=== PATIENT | female | born 1960 | race Caucasian/White ===

== ENCOUNTER 2017-06-06 08:16 | Inpatient (IN) ==
--- NOTE | 2017-06-05 21:52 | Discharge Summary ---
<CariDeisy jasmineRomana L - Last Filed: 06/05/17 21:55> Date of Encounter: 06/05/17 - Discharge Diagnosis (1) Arthritis of knee, left Priority: Primary Status: Acute (2) Depression Priority: Secondary Status: Chronic Qualifiers: Depression Type: unspecified Qualified Code(s): F32.9 - Major depressive disorder, single episode, unspecified (3) Migraines Priority: Secondary Status: Chronic Qualifiers: Migraine type: unspecified Status migrainosus presence: without status migrainosus Intractability: not intractable Qualified Code(s): G43.909 - Migraine, unspecified, not intractable, without status migrainosus (4) Status post total knee replacement, left Priority: Primary Status: Acute - Discharge Medications Home Medications: Aspirin Enteric Coated [Aspirin EC] 325 mg PO DAILY #21 tablet.dr 06/05/17 [Rx] OxyCODONE Immed Rel [Roxicodone 5 MG] 5 - 10 mg PO Q6HR PRN #40 tablet 06/05/17 [Rx] Amitriptyline [Elavil] 25 mg PO HS 06/06/17 [History] Apremilast [Otezla] 30 mg PO BID 06/06/17 [History] Atorvastatin [Lipitor] 10 mg PO HS 06/06/17 [History] Duloxetine HCl [Cymbalta] 60 mg PO BID 06/06/17 [History] Estradiol [Estrace] 1 mg PO DAILY 06/06/17 [History] Levothyroxine [Synthroid] 75 mcg PO 0630 06/06/17 [History] Meloxicam [Mobic] 15 mg PO DAILY 06/06/17 [History] Multivitamin [Multi-Day Vitamins] 1 each PO DAILY 06/06/17 [History] Omeprazole [PriLOSEC] 40 mg PO DAILY 06/06/17 [History] Tramadol HCl [Ultram] 50 mg PO QID PRN 06/06/17 [History] hydrOXYzine pamoate [HydrOXYzine Pamoate] 25 - 50 mg PO BID PRN 06/06/17 [ History] Allergies/Adverse Reactions: Allergies adhesive tape Adverse Reaction (Verified 06/06/17 19:41) Rash latex Adverse Reaction (Verified 06/06/17 19:41) See Comments Primary care physician: LOREN Ontiveros - Patient Status Disposition: Home Health Service Condition: Good - Discharge Instructions Follow Up With: Orly Oneill CNP [Primary Care Provider] - - Hospital Course Hospital course: Ms. Chicas is a 56 year old female - Time Spent with Patient Total time spent providing and/or coordinating discharge services: <Yuri Dodgemerlin Quezadah - Last Filed: 06/08/17 07:49> Date of Encounter: 06/08/17 Time of Encounter: 07:47 - Discharge Diagnosis (1) Obesity, morbid, BMI 40.0-49.9 Priority: Secondary Status: Chronic (2) Arthritis of knee, left Priority: Primary Status: Chronic (3) Depression Priority: Secondary Status: Chronic Qualifiers: Depression Type: unspecified Qualified Code(s): F32.9 - Major depressive disorder, single episode, unspecified (4) Migraines Priority: Secondary Status: Chronic Qualifiers: Migraine type: unspecified Status migrainosus presence: without status migrainosus Intractability: not intractable Qualified Code(s): G43.909 - Migraine, unspecified, not intractable, without status migrainosus (5) Status post total knee replacement, left Priority: Primary Status: Acute (6) Acute blood loss anemia Priority: Primary Status: Acute Primary care physician: LOREN Ontiveros - Patient Status Functional capacity at discharge: uses cane/walker Overall status at discharge: patient is progressing back to baseline - Hospital Course Hospital course: Ms. Chicas is a 56 year old female Status post total knee replacement. Patient with a drop in her hematocrit to 28.5 asymptomatic. The patient had an uneventful postoperative course. They received antibiotics and physical therapy and were discharged in stable condition. There will follow -up in the office in 2 weeks. - Time Spent with Patient Total time spent providing and/or coordinating discharge services:
--- NOTE | 2017-06-05 21:55 | Physician Discharge Referral ---
<Carmelo Dodge - Last Filed: 06/09/17 06:36> - Diagnosis (1) Obesity, morbid, BMI 40.0-49.9 Status: Chronic (2) Arthritis of knee, left Status: Chronic (3) Depression Status: Chronic (4) Migraines Status: Chronic (5) Status post total knee replacement, left Status: Acute (6) Acute blood loss anemia Status: Acute - Respiratory Orders Smoking Cessation: Smoking cessation has been advised. For more information, call the [place] Tobacco Quit Line at 1-523-LMGU-NOW. - Transfer Medications Home Medications: Aspirin Enteric Coated [Aspirin EC] 325 mg PO DAILY #21 tablet. 06/05/17 [Rx] OxyCODONE Immed Rel [Roxicodone 5 MG] 5 - 10 mg PO Q6HR PRN #40 tablet 06/05/17 [Rx] Amitriptyline [Elavil] 25 mg PO HS 06/06/17 [History] Apremilast [Otezla] 30 mg PO BID 06/06/17 [History] Atorvastatin [Lipitor] 10 mg PO HS 06/06/17 [History] Duloxetine HCl [Cymbalta] 60 mg PO BID 06/06/17 [History] Estradiol [Estrace] 1 mg PO DAILY 06/06/17 [History] Levothyroxine [Synthroid] 75 mcg PO 30 06/06/17 [History] Meloxicam [Mobic] 15 mg PO DAILY 06/06/17 [History] Multivitamin [Multi-Day Vitamins] 1 each PO DAILY 06/06/17 [History] Omeprazole [PriLOSEC] 40 mg PO DAILY 06/06/17 [History] Tramadol HCl [Ultram] 50 mg PO QID PRN 06/06/17 [History] hydrOXYzine pamoate [HydrOXYzine Pamoate] 25 - 50 mg PO BID PRN 06/06/17 [ History] Allergies/Adverse Reactions: Allergies adhesive tape Adverse Reaction (Verified 06/06/17 19:41) Rash latex Adverse Reaction (Verified 06/06/17 19:41) See Comments Certification: Further, I certify that my clinical findings support that this patient is homebound (i.e. absences from home require considerable and taxing effort and are for medical reasons or tenriism services or infrequently or short duration when for other reasons) because: Attestation: My signature below is to certify that this patient is under my care and that I, or nurse practitioner, or a physician's assistant plant manager working with me, has a face-to -face encounter with this patient. <Romana Wiseman - Last Filed: 06/10/17 12:39> Home Health/Hosp Referral Info Transfer to: Home Health Provider in Charge Post Discharge: PCP - Diagnosis (1) Status post total knee replacement, left Priority: Primary Status: Acute (2) Arthritis of knee, left Priority: Primary Status: Chronic (3) Depression Priority: Primary Status: Chronic (4) Migraines Priority: Primary Status: Chronic - Respiratory Orders None Smoking Cessation: Smoking cessation has been advised. For more information, call the [employer] Tobacco Quit Line at 5-157-GQOR-NOW. - Diet/Nutrition Diet/Nutrition Orders: Regular - Activity Activity Orders: Up ad sharon, Ambulate - Services Needed Following services are medically necessary services: Nursing, Home Health Aide, Physical Therapy, Occupational Therapy Home Care Orders: Opsite dressing, leave intact until first post-operative visit. If dressing becomes >50% saturated, contact office, remove dressing and place appropriate dressing in its place. Do not allow for dressing to get wet. Triangle in place, plan to remove at post-operative day #14-16. Total Joint Precautions x 6 weeks Apply cold therapy wrap 3-6x/day for 20 minutes at a time. Encourage ambulation throughout the day Use Incentive spirometer 10x/hour. Elevate affected extremity above heart as tolerated. Brace: Wear knee immobilizer at night x 2 weeks Certification: Further, I certify that my clinical findings support that this patient is homebound (i.e. absences from home require considerable and taxing effort and are for medical reasons or tenriism services or infrequently or short duration when for other reasons) because: Homebound Reason: Post-surgery restriction and or conditions limit ability to leave home Attestation: My signature below is to certify that this patient is under my care and that I, or nurse practitioner, or a physician's assistant plant manager working with me, has a face-to -face encounter with this patient.
[2017-06-06] MEDS ORDERED: CeFAZolin Pre 3,000 MG/100 ML 3,000 MG/100 ML BAG IVPB ONE (08:34)
--- NOTE | 2017-06-06 08:41 | History & Physical Report ---
Date of Encounter: 06/06/17 Time of Encounter: 08:41 24 Hour HP Update - Instructions Instructions: If the History and Physical is less than 30 days old and was completed prior to A.M. admission and or procedure and has NOT been updated on calendar day of procedure please complete this update prior to performing procedure. - Update Patient reports changes in Medical Condition: No Changes in examination, assessment, or condition: No Changes in Medication: No Preop tests/diagnostics Reviewed: Yes Surgery Remains Indicated: Yes Consent for Planned Operative Procedure(s) Verified: Yes - Pre-Operative Checklist Preoperative Checklist Indicated: No Prophylactic Antibiotic Ordered: Yes Is VTE Prophylaxis Indicated?: Yes
[2017-06-06] MEDS ORDERED: Vancomycin 1,750 MG in D5% in Water 250 ML IVPB ONE (09:02)
[2017-06-06] MEDS: Ringers Solution, Lactated 1,000 ML IVC SCH ×2 (09:05→10:07)
[2017-06-06] MEDS ORDERED: Vancomycin 1,750 MG in D5% in Water 500 ML IVPB ONE ×2 (09:33→09:35)
[2017-06-06] MEDS ORDERED: Famotidine 20 MG/2 ML VIAL IVP ONE (09:36)
[2017-06-06] MEDS ORDERED: Gabapentin 300 MG CAPSULE PO ONE (09:36)
[2017-06-06] MEDS ORDERED: *HR* FentaNYL (PF) 100 MCG/2 ML VIAL ONE (10:01)
[2017-06-06] MEDS ORDERED: Lidocaine -MPF 2% 2 ML VIAL ONE (10:01)
[2017-06-06] MEDS ORDERED: Dexamethasone 4 MG/ML VIAL ONE (10:02)
[2017-06-06] MEDS ORDERED: *HR* Propofol 200 MG/20 ML VIAL IVP ONE ×2 (10:02→10:44)
[2017-06-06] MEDS ORDERED: *HR* Midazolam HCl 2 MG/2 ML VIAL ONE (10:12)
--- NOTE | 2017-06-06 10:19 | Anesthesia Evaluation PreOp ---
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 06/05/17 [Rx] OxyCODONE Immed Rel [Roxicodone 5 MG] 5 - 10 mg PO Q6HR PRN #40 tablet 06/05/17 [Rx] Allergies latex Allergy (Unverified 06/01/17 15:11) See Comments - Meds/Allergy Pre-op Review Medications Reviewed: Yes Allergies Reviewed: Yes Beta Blockers on Current Med List: No Anesthesia Results - Labs Laboratory Tests 06/01/17 06/01/17 15:27 15:27 Hgb 14.0 Hct 42.9 Plt Count 264 Sodium 136 Potassium 4.0 BUN 9 Creatinine 0.82 Anesthesia Exam O2 Sat Height 1.63 m Height 1.63 m Height 1.63 m Weight 122.016 kg Weight 122.016 kg Weight 122.016 kg O2 Sat by Pulse Oximetry 95 O2 Sat by Pulse Oximetry 95 Vital Signs Temp Pulse Resp BP Pulse Ox 98.3 F 102 18 129/82 95 06/06/17 08:37 06/06/17 08:37 06/06/17 08:37 06/06/17 08:37 06/06/17 08:37 Height: 5'4 Weight: 269 lbs NPO (# of Hours): MN Pain Scale: 0 - HEENT Pupil (Motor): Pupils equal, EOMI Mallampati: III Teeth: Normal Oral Opening: Less than or equal to 3 - BROADCAST FIELD SUPERVISOR LOC: Oriented BROADCAST FIELD SUPERVISOR Motor: Normal RUE, Normal LUE, Normal RLE, Normal LLE, Normal Face BROADCAST FIELD SUPERVISOR Sensory: Normal: RUE, LUE, RLE, LLE, Face - Cardiac Rhythm: Regular Murmur: None JVD: No Carotid Bruit: No - Pulmonary Breath Sounds: bilateral Clear Respiratory Effort: Symmetrical Anesthesia Assess/Plan ASA Score: 3 (MO) Modified [place] Scale for Level of Consciousness: Cooperative, oriented, and tranquil Anesthetic Plan: General, Regional Monitoring Plan: Standard Monitors Recovery Plan: PACU (Discussed GA and RA, agrees to proceed)
[2017-06-06] MEDS ORDERED: Tetracaine/PF 20 MG/2 ML AMPUL ONE (10:25)
[2017-06-06] MEDS ORDERED: Bupivacaine/Clonidine Syringe 1 EACH SYRINGE ONE (10:25)
--- NOTE | 2017-06-06 10:48 | Anesthesia Procedures ---
Date of Encounter: 06/06/17 Time of Encounter: 10:46 Procedures: Anesthesia - Nerve Block Procedure Date: 06/06/17 Time: 10:46 Allergies/Adv Reactions: Allergies latex Allergy (Unverified 06/01/17 15:11) See Comments Pre-op Diagnosis: left knee oa Surgical Procedure: left tka Checklist: Correct Patient Identifier, Correct procedure, History checked Correct side: Left Blood Thinner: No Monitor Applied: EKG, BP, Pulse Oximetry Supplemental Oxygen via Nasal Cannula (L/min): 2 Sedation: Versed (mg): 2 Sedation: Fentanyl (mcg): 100 Indication: Post Op Analgesia Pre-op Neuro Deficits: No Block Type: Femoral, Other (iPACK) Catheter placed: No Sterile Technique: Yes Ultrasound used: Yes Anatomy identified: Yes Visual spread of Local: Yes Neuro Stimulation: No Blood on Needle Aspiration: No Smooth Injection of Local: Yes Pain with Injection of Local: No Prep: Chlorhexadine Needle: 21 x 100 mm Stimuplex Local: 0.25% Bupivicaine w/Clonidine 20 mcg/cc (20 CC iPACK), Ropivacaine (30cc femoral) Volume (cc): 50 Number of Attempts: 1 Complications: None/effective block
[2017-06-06] MEDS ORDERED: *HR* Meperidine 25 MG/ML SYRINGE IVP PRN (11:27)
[2017-06-06] MEDS ORDERED: *HR* Succinylcholine 200 MG/10 ML VIAL IVP ONE (11:39)
[2017-06-06] MEDS ORDERED: Ondansetron 4 MG/2 ML VIAL ONE (11:39)
[2017-06-06] MEDS ORDERED: Ketorolac 30 MG/ML VIAL ONE (11:59)
--- NOTE | 2017-06-06 11:59 | Orthopedic Operative Note ---
Date of procedure: 06/06/17 Pre-op diagnosis: Left knee arthritis Post-op diagnosis: same Procedure: Procedure: Left Total knee replacement Estimated blood loss: 200 cc Hardware: Metal and polyethylene replacement: Biomet Femur: 65, 16 x 80 stem Tibia: 71, 12 x 80 stem Makenna insert: 12 constrained Patella: 34 Exam Under anesthesia: Loss full extension 10 degrees flexion 90 degrees Procedural Notes: Grade 4 arthritic changes medial compartment patellofemoral joint. Operative procedure: The patient was brought to the operating room and placed on the operating room table. After general anesthesia was administered the operative knee was examined. Findings were noted in the exam under anesthesia. The operative extremity was prepped and draped in sterile surgical fashion. The patient received IV antibiotics prior to skin incision. A standard midline incision was made centered over the patella. The incision was made through the skin and subcutaneous tissue. A medial parapatellar tendon approach was performed. Care was taken to preserve tissue along the medial aspect of the patella. And to protect the patella tendon. The deep MCL was released off the medial tibia. The infra patella fat pad was excised. Knee was brought into flexion. Patient noted to have grade 4 arthritic changes medial compartment and patellofemoral joint. The entry hole was made for the intramedullary femoral guide. The guide was seated in 6 degrees of valgus. Anterior cut was made followed by the distal cut. The PCL the medial and the lateral menisci were excised. The tibia was subluxed forward. The entry hole was made for the intramedullary tibial guide. Guide was seated to resect 2 mm off the more abnormal side. The knee was brought into flexion the distal femur was sized to a 65 The femur was first reamed to a 16 x 80 The femoral guide was seated, the anterior cut was made followed by the posterior condylar cut, followed by the chamfer cuts. The finishing guide was seated the box cut was made. Trial had good fit and fixation The tibia was sized to a an 71 The tibia was first reamed 12 x 80 Trial reduction revealed full extension no varus valgus instability with the appropriate 12 insert. The patella was everted and cut was made at the level of the insertion of the quadriceps and patella tendon. The patella was sized to a 34 the guide was seated and the lug holes are drilled. Trial reduction revealed excellent patella tracking. All trial components were removed all bony surfaces were irrigated. Components were assembled on the back table. The femur was cemented first followed by the tibia. The 34 Makenna was seated and secured. The knee was brought into full extension. The patella was cemented and held in place with the patellar holding clamp. After the cement had hardened, the knee sat for 2 minutes with a Betadine saline solution. The knee was then irrigated out with 2 L of pulse irrigation. The knee was closed by the PA. The extensor mechanism was closed with #2 FiberWire suture and #2 PDS suture. The subcutaneous tissue was then irrigated and closed deep with #1 PDS suture superficially with 0 PDS suture and skin was closed with skin kristine The patient was then placed in a sterile dressing and a postoperative brace extubated and transferred to recovery room in stable condition. Anesthesia: RHIANNON Surgeon: Carmelo Dodge Theatre Professor: Moriah Castillo Condition: stable Disposition: PACU
[2017-06-06] MEDS ORDERED: *HR* HYDROmorphone 2 MG/ML SYRINGE ONE (12:39)
[2017-06-06] MEDS ORDERED: *HR* HYDROmorphone (PF) 1 MG/ML SYRINGE ONE ×2 (12:49→13:15)
[2017-06-06] MEDS: *HR* HYDROmorphone (PF) 1 MG/ML SYRINGE IVP PRN ×4 (12:50→13:20)
[2017-06-06 13:14] LABS: Hematocrit 36.8 % (35.3-44.9)
[2017-06-06 13:19] LABS: Hemoglobin 11.8 g/dL (11.5-15.4)
--- NOTE | 2017-06-06 13:22 | Anesthesia Evaluation Post Op ---
Date of Encounter: 06/06/17 Time of Encounter: 13:22 - Vital Signs Vital Signs: Last Vital Signs Temp 97.0 F L 06/06/17 12:40 Pulse 84 06/06/17 12:50 Resp 16 06/06/17 12:50 BP 92/57 06/06/17 12:50 Pulse Ox 99 06/06/17 12:50 - Lungs Lungs: Clear Ascult./Percussion - Airway Airway: Non-obstructed - Cardiovascular Regular Rate - Mental Status Mental Status: Alert & Oriented, Answers Appropriately - Pain Pain Scale: 4 - Nausea Vomiting Nausea Vomiting: Not Present - Hydration Hydration: NPO - Discharge PostOp Status: Transfer Patient to floor
[2017-06-06] MEDS ORDERED: *HR* OxyCODONE Immed Rel 5 MG TABLET PO PRN (13:52)
[2017-06-06] MEDS ORDERED: Temazepam 15 MG CAPSULE PO PRN (13:52)
[2017-06-06] MEDS ORDERED: Ondansetron 4 MG/2 ML VIAL IVP PRN (13:52)
[2017-06-06] MEDS ORDERED: MOM Conc 10 ML UD.LIQ PO PRN (13:52)
[2017-06-06] MEDS ORDERED: Sennosides 8.6 MG TABLET PO PRN (13:52)
[2017-06-06] MEDS ORDERED: Ringers Solution, Lactated 1,000 ML IVC SCH (13:52)
[2017-06-06] MEDS ORDERED: Naloxone 0.4 MG/ML INJ IVP PRN (13:52)
[2017-06-06] MEDS ORDERED: Ringers Solution, Lactated 500 ML IVC ONE (15:40)
[2017-06-06] MEDS ORDERED: *HR* Enoxaparin 30 MG/0.3 ML SYRINGE SQ SCH (18:00)
[2017-06-06] MEDS: ceFAZolin 3,000 MG in D5% in Water 100 ML IVPB SCH (18:44)
[2017-06-06] MEDS: *HR* Enoxaparin 30 MG/0.3 ML SYRINGE SQ SCH (18:45)
[2017-06-06] MEDS: *HR* OxyCODONE Immed Rel 5 MG TABLET PO PRN (19:39)
[2017-06-07] MEDS: ceFAZolin 3,000 MG in D5% in Water 100 ML IVPB SCH (00:52)
[2017-06-07] MEDS: *HR* OxyCODONE Immed Rel 5 MG TABLET PO PRN ×5 (00:59→21:34)
[2017-06-07] MEDS: *HR* Enoxaparin 30 MG/0.3 ML SYRINGE SQ SCH ×2 (05:50→18:44)
[2017-06-07 06:01] LABS: Hematocrit 36.6 % (35.3-44.9); Hemoglobin 11.6 g/dL (11.5-15.4)
[2017-06-07 06:21] LABS: BUN/Creatinine Ratio 12 (6-26); Blood Urea Nitrogen 10 mg/dL (7-20); Calcium 9.2 mg/dL (8.6-10.8); Carbon Dioxide 26 mEq/L (19-29); Chloride 103 mEq/L (98-109); Glucose 121 mg/dL (70-99); Osmolality,Calculated 286 (280-300); Potassium 3.9 mEq/L (3.5-4.5); Sodium 138 mEq/L (136-145); eGFR For African Americans > 60 (> 60); eGFR For Non-African Americans > 60 (> 60)
--- NOTE | 2017-06-07 06:23 | Orthopedics Progress Note ---
Date of Encounter: 06/07/17 Time of Encounter: 06:22 - Assessment and Plan (1) Obesity, morbid, BMI 40.0-49.9 Current Visit: Yes Status: Chronic (2) Arthritis of knee, left Current Visit: Yes Status: Chronic (3) Depression Current Visit: Yes Status: Chronic Qualifiers: Depression Type: unspecified Qualified Code(s): F32.9 - Major depressive disorder, single episode, unspecified (4) Migraines Current Visit: Yes Status: Chronic Qualifiers: Migraine type: unspecified Status migrainosus presence: without status migrainosus Intractability: not intractable Qualified Code(s): G43.909 - Migraine, unspecified, not intractable, without status migrainosus (5) Status post total knee replacement, left Current Visit: Yes Status: Acute Subjective Interval history: Patient was seen this morning doing well without complaints. Afebrile vital signs stable. Operative extremity: Neurovascularly intact Dressing clean dry and intact Calves nontender Assessment and plan: Continue with postoperative care Hematocrit 36 Objective Vital signs: Vital Signs Temp Pulse Resp BP Pulse Ox 06/07/17 04:44 97.9 F 85 17 103/68 98 06/06/17 22:58 98.5 F 86 18 104/67 97 06/06/17 19:25 98.7 F 80 18 102/71 97 06/06/17 16:35 97.8 F 75 14 115/76 95 06/06/17 15:35 97.8 F 85 14 83/63 95 06/06/17 14:30 97.8 F 81 13 103/73 97 06/06/17 14:14 97.7 F 83 12 98/67 96 06/06/17 14:00 97.8 F 88 13 86/63 97 06/06/17 13:55 98 06/06/17 13:42 97.8 F 86 12 97/71 97 06/06/17 13:30 97.8 F 84 16 111/85 95 06/06/17 13:20 85 16 105/74 96 06/06/17 13:10 97.8 F 81 16 115/77 95 06/06/17 13:00 82 16 108/76 96 06/06/17 12:50 84 16 92/57 99 06/06/17 12:40 97.0 F L 85 12 80/56 97 06/06/17 10:47 89 16 125/79 98 06/06/17 10:30 86 16 112/95 96 06/06/17 08:49 98.3 F 102 18 129/82 95 06/06/17 08:37 98.3 F 102 18 129/82 95 Intake and Output 06/06/17 06/06/17 06/07/17 15:59 23:59 07:59 Intake Total 1000 / 1000 1060 / 1060 Output Total 250 / 250 1425 / 1425 500 / 500 Balance 750 / 750 -365 / -365 -500 / -500 Intake: IV Fluids 1000 / 1000 100 / 100 Lactated Ringers 1,000 ML 1000 / 1000 @ 25 mls/hr IVC .Q24H JOSEFA Rx#:[id number] Ancef 3,000 MG In 100 / 100 Dextrose 5% 100 ML @ 200 mls/hr IVPB Q8HR JOSEFA Rx#: [id number] Oral 0 / 0 960 / 960 Output: Urine 0 / 0 1425 / 1425 500 / 500 Estimated Blood Loss 250 / 250 Other: Meal Dinner Percent of Meal Consumed 100% # Voids 1 Weight 122.016 kg - Labs CBC & BMP: 06/07/17 04:09 06/07/17 04:09 Labs: Abnormal lab results Glucose 121 mg/dL (70-99) H 06/07/17 04:09 - VTE Documentation of Mechanical Device: Venous foot pump, device Consult Discharge Plan - Plan Referrals: Orly Oneill, METAL ROOFING MECHANIC [Primary Care Provider] -
[2017-06-07] MEDS: *HR* HYDROmorphone (PF) 1 MG/ML SYRINGE IVP PRN ×2 (08:40→14:32)
--- NOTE | 2017-06-07 11:50 | Event Note ---
Date of Encounter: 06/07/17 Time of Encounter: 11:49 PCR - POD#1 - Left TKR Patient seen at bedside. D/c oxygen via NC Pain control: Yes Participating in PT. All questions and concerns addressed. Educated on use of incentive spirometer, ambulation, and hydration. Patient educated on post-operative restrictions and care. Addressed: Above* D/C plan:.Home with [facility] - possibly ECF pending PT re-eval - both continuities placed.
--- NOTE | 2017-06-07 11:51 | Physician Discharge Referral ---
ExtendedCare Referral Info Transfer To: [facility] Provider in Charge: Provider in Charge after Transfer: PCP Institutional Level of Care: Skilled - Diagnosis (1) Status post total knee replacement, left Priority: Primary Status: Acute (2) Arthritis of knee, left Priority: Primary Status: Chronic (3) Depression Priority: Secondary Status: Chronic (4) Migraines Priority: Secondary Status: Chronic Expected Duration of Placement: <30 days Prognosis: Good Aware of Diagnosis: Patient Aware of Prognosis: Patient - Transfer Medications Home Medications: Aspirin Enteric Coated [Aspirin EC] 325 mg PO DAILY #21 tablet. 06/05/17 [Rx] OxyCODONE Immed Rel [Roxicodone 5 MG] 5 - 10 mg PO Q6HR PRN #40 tablet 06/05/17 [Rx] Amitriptyline [Elavil] 25 mg PO HS 06/06/17 [History] Apremilast [Otezla] 30 mg PO BID 06/06/17 [History] Atorvastatin [Lipitor] 10 mg PO HS 06/06/17 [History] Duloxetine HCl [Cymbalta] 60 mg PO BID 06/06/17 [History] Estradiol [Estrace] 1 mg PO DAILY 06/06/17 [History] Levothyroxine [Synthroid] 75 mcg PO 0630 06/06/17 [History] Meloxicam [Mobic] 15 mg PO DAILY 06/06/17 [History] Multivitamin [Multi-Day Vitamins] 1 each PO DAILY 06/06/17 [History] Omeprazole [PriLOSEC] 40 mg PO DAILY 06/06/17 [History] Tramadol HCl [Ultram] 50 mg PO QID PRN 06/06/17 [History] hydrOXYzine pamoate [HydrOXYzine Pamoate] 25 - 50 mg PO BID PRN 06/06/17 [ History] Allergies/Adverse Reactions: Allergies adhesive tape Adverse Reaction (Verified 06/06/17 19:41) Rash latex Adverse Reaction (Verified 06/06/17 19:41) See Comments - Respiratory Orders None Smoking Cessation: Smoking cessation has been advised. For more information, call the [place] Tobacco Quit Line at 1-370-OSEU-NOW. - Ancillary Orders May use pressure relief devices daily prn, May go on NOAH w/family/respon constitution party w /meds at nurse discretion PRN, May consult with Dentist, Stapler Hand, Executive Vice President And Chief Operating Officer PRN - Mobility Orders Chair, Ambulate - Rehabiliation Orders Rehab Potential: Good Rehab Orders: ROM Exercises, Evaluation for Physical Therapy, Evaluation for Occupational Therapy Other: Opsite dressing, leave intact until first post-operative visit. If dressing becomes >50% saturated, contact office, remove dressing and place appropriate dressing in its place. Do not allow for dressing to get wet. [place] in place, plan to remove at post-operative day #14-16. Total Joint Precautions x 6 weeks Apply cold therapy wrap 3-6x/day for 20 minutes at a time. Encourage ambulation throughout the day Use Incentive spirometer 10x/hour. Elevate affected extremity above heart as tolerated. Brace: Wear knee immobilizer at night x 2 weeks. - Treatments Skin tear care topically daily PRN per policy List/Other: Opsite dressing, leave intact until first post-operative visit. If dressing becomes >50% saturated, contact office, remove dressing and place appropriate dressing in its place. Do not allow for dressing to get wet. [place] in place, plan to remove at post-operative day #14-16. Total Joint Precautions x 6 weeks Apply cold therapy wrap 3-6x/day for 20 minutes at a time. Encourage ambulation throughout the day Use Incentive spirometer 10x/hour. Elevate affected extremity above heart as tolerated. Brace: Wear knee immobilizer at night x 2 weeks. - Diet Orders Regular CERTIFICATION: I certify that the transfer of the above named patient to an Extended Care Facility is necessary for the continuing treatment of the diagnosis listed. The above information is true and accurate reflection of patient's current condition. Confidential - Redisclosure prohibited without a patient's written consent.
[2017-06-07] MEDS ORDERED: Acetaminophen IV 1,000 MG/100 ML INFUS..BTL IVPB PRN (13:39)
[2017-06-08] MEDS: *HR* HYDROmorphone (PF) 1 MG/ML SYRINGE IVP PRN ×2 (00:44→04:15)
[2017-06-08] MEDS: *HR* OxyCODONE Immed Rel 5 MG TABLET PO PRN ×3 (03:19→12:48)
[2017-06-08] MEDS ORDERED: Acetaminophen IV 1,000 MG/100 ML INFUS..BTL IVPB PRN (04:15)
[2017-06-08 05:32] LABS: Hematocrit 28.8 % (35.3-44.9)
[2017-06-08 05:33] LABS: Hemoglobin 9.5 g/dL (11.5-15.4)
[2017-06-08 05:47] LABS: BUN/Creatinine Ratio 10 (6-26); Blood Urea Nitrogen 7 mg/dL (7-20); Calcium 8.7 mg/dL (8.6-10.8); Carbon Dioxide 31 mEq/L (19-29); Chloride 98 mEq/L (98-109); Glucose 140 mg/dL (70-99); Osmolality,Calculated 280 (280-300); Potassium 3.2 mEq/L (3.5-4.5); Sodium 135 mEq/L (136-145); eGFR For African Americans > 60 (> 60); eGFR For Non-African Americans > 60 (> 60)
[2017-06-08] MEDS: *HR* Enoxaparin 30 MG/0.3 ML SYRINGE SQ SCH (05:58)
--- NOTE | 2017-06-08 07:50 | Orthopedics Progress Note ---
Date of Encounter: 06/08/17 Time of Encounter: 07:49 - Assessment and Plan (1) Obesity, morbid, BMI 40.0-49.9 Current Visit: Yes Status: Chronic (2) Arthritis of knee, left Current Visit: Yes Status: Chronic (3) Depression Current Visit: Yes Status: Chronic Qualifiers: Depression Type: unspecified Qualified Code(s): F32.9 - Major depressive disorder, single episode, unspecified (4) Migraines Current Visit: Yes Status: Chronic Qualifiers: Migraine type: unspecified Status migrainosus presence: without status migrainosus Intractability: not intractable Qualified Code(s): G43.909 - Migraine, unspecified, not intractable, without status migrainosus (5) Status post total knee replacement, left Current Visit: Yes Status: Acute (6) Acute blood loss anemia Current Visit: Yes Status: Acute Subjective Interval history: Patient was seen this morning doing well without complaints. Afebrile vital signs stable. Operative extremity: Neurovascularly intact Dressing clean dry and intact Calves nontender Assessment and plan: Continue with postoperative care Hematocrit 28.5 asymptomatic discharged today Objective Vital signs: Vital Signs Temp Pulse Resp BP Pulse Ox 06/08/17 07:09 98.8 F 101 16 129/83 94 06/08/17 00:34 98.7 F 83 19 128/81 93 06/07/17 20:45 99.0 F 111 17 110/69 94 06/07/17 16:14 98.7 F 106 17 107/72 95 06/07/17 11:49 98.5 F 102 16 128/80 93 06/07/17 08:00 99 Intake and Output 06/07/17 06/07/17 06/08/17 15:59 23:59 07:59 Intake Total 1360 / 1360 840 / 840 1200 / 1200 Output Total 1050 / 1050 700 / 700 2250 / 2250 Balance 310 / 310 140 / 140 -1050 / -1050 Intake: IV Fluids 100 / 100 Ofirmev 1,000 mg/100 ml 1 100 / 100 ,000 mg In 100 ml @ 400 mls/hr IVPB Q6HR PRN Rx#: [id number] Oral 1360 / 1360 740 / 740 1200 / 1200 Output: Urine 1050 / 1050 700 / 700 2250 / 2250 Other: Meal Lunch Dinner Percent of Meal Consumed 90% 10% # Voids 2 - Labs CBC & BMP: 06/08/17 05:24 06/08/17 05:24 Labs: Abnormal lab results Hgb 9.5 g/dL (11.5-15.4) L D 06/08/17 05:24 Hct 28.8 % (35.3-44.9) L 06/08/17 05:24 Sodium 135 mEq/L (136-145) L 06/08/17 05:24 Potassium 3.2 mEq/L (3.5-4.5) L 06/08/17 05:24 Carbon Dioxide 31 mEq/L (19-29) H 06/08/17 05:24 Glucose 140 mg/dL (70-99) H 06/08/17 05:24 - VTE Documentation of Mechanical Device: Venous foot pump, device Consult Discharge Plan - Plan Referrals: Orly Oneill, MEDICAID NURSE [Primary Care Provider] -
[2017-06-08] MEDS ORDERED: Multivit/Ca/Min/Fe/FA 1 TAB TABLET PO SCH (09:00)
--- NOTE | 2017-06-08 12:18 | Event Note ---
Date of Encounter: 06/08/17 Time of Encounter: 12:00 PCR - POD#2 - Left TKR Patient seen at bedside. D/c oxygen via NC Pain control: Adequate Participating in PT. All questions and concerns addressed. Educated on use of incentive spirometer, ambulation, and hydration. Patient educated on post-operative restrictions and care. Addressed: See Above D/C plan:.[facility]. Social work awaiting authorization - authorization obtained during PCR - patient to go today.
[2017-06-08 12:48] VITALS: BP 106/71
== END 2017-06-08 13:55 | disposition home health service (06) | DRG 302 ==
LOC: SAMDAY 08:16 → 3NENU 15:31
PROVIDERS: ADMIT Orthopaedic Surgery; ATTEND Orthopaedic Surgery